=== PATIENT | female | born 1995 | race Asian ===

== ENCOUNTER → 2017-03-03 14:03 | Emergency (ER) | payer OTHER ==
[2017-03-03] MEDS: NS 0.9% 1000 ML* 2,000 ML IV ONE (14:54)
[2017-03-03 15:10] LABS: Hematocrit 38 % (35-47); Hemoglobin 12.7 g/dl (12.0-16.0); Mean Corpuscular HGB Conc 34 g/dl (31-36); Mean Corpuscular Hemoglobin 31 pg (27-31); Mean Corpuscular Volume 93 fL (80-97); Mean Platelet Volume 9 um3 (7.4-10.4); Red Blood Count 4.07 10^6/ul (4.0-5.4); Red Cell Distribution Width 13 % (10.5-15)
[2017-03-03 15:29] LABS: ALT 7 U/L (7-52); AST 11 U/L (13-39); Albumin 3.8 g/dL (3.2-5.2); Alkaline Phosphatase 32 U/L (34-104); Anion Gap 7 mmol/L (2-11); BUN/Creatinine Ratio 16.7 (8-20); Blood Urea Nitrogen 10 mg/dL (6-24); C Reactive Protein < 1.00 mg/L (< 5.00); CO2 Carbon Dioxide 20 mmol/L (22-32); Calcium 8.1 mg/dL (8.6-10.3); Chloride 110 mmol/L (101-111); EGFR African American 159.3 (>60); EGFR Non-African American 123.9 (>60); Globulin 2.7 g/dL (2-4); Glucose 115 mg/dL (70-100); Lipase 32 U/L (11.0-82.0); Potassium 3.8 mmol/L (3.5-5.0); Sodium 137 mmol/L (133-145); Total Protein 6.5 g/dL (6.4-8.9)
--- NOTE | 2017-03-03 16:57 | ED ---
Ramón Calvillo SooYoung, scribed for Jassi Florence MD on 03/03/17 at 1424 . Abdominal Pain/Female - HPI Summary HPI Summary: A 21 y/o F presents to ED BIBA with c/o suprapubic abd pain onset approx noon. Pain radiates to back. Associated sx: diaphoretic, chills, trembling, dyspnea, nausea, vomiting with blood, diarrhea, dizzy. Denies fever, urinary sx. Pt feels dehydrated. She states it's the first day of her period, but the pain is much more intense than normal. She isn't bleeding as heavily as she typically does. She states it's been on time. No abd surgeries. She feels better at bedside. She took Ibuprofen at approx 1300. - History of Current Complaint Chief Complaint: EDAbdPain Stated Complaint: ABD PAIN Time Seen by Provider: 03/03/17 14:22 Hx Obtained From: Patient Onset/Duration: Sudden Onset, Lasting Hours, Still Present Timing: Constant Severity Currently: Severe Pain Intensity: 10 Pain Scale Used: 0-10 Numeric Location: Diffuse, Suprapubic Associated Signs and Symptoms: Positive: Diaphoresis, Dizzy, Back Pain, Vaginal Bleeding, Nausea, Vomiting - with blood, Diarrhea, Other: - pos: dyspnea, trembling. Negative: Fever, Urinary Symptoms Allergies/Adverse Reactions: Allergies Allergy/AdvReac Type Severity Reaction Status Date / Time No Known Allergies Allergy Verified 03/03/17 14:39 PMH/Surg Hx/FS Hx/Imm Hx Previously Healthy: Yes Respiratory History: Denies: Hx Chronic Obstructive Pulmonary Disease (COPD) GI History: Denies: Hx Gastroesophageal Reflux Disease Opthamlomology History: Denies: Hx Legally Blind - Family History Known Family History: Negative: Cardiac Disease, Hypertension, Diabetes - Social History Occupation: Student Lives: Dormitory/Roommates Review of Systems Positive: Chills, Skin Diaphoresis, Other - trembling. Negative: Fever Positive: Abdominal Pain, Vomiting - with blood, Diarrhea, Nausea Positive: discharge - vaginal bleeding due to menstrual cycle. Negative: dysuria Neurological: Other - pos: dizziness All Other Systems Reviewed And Are Negative: Yes Physical Exam Triage Information Reviewed: Yes Vital Signs On Initial Exam: Initial Vitals BP 113/69 03/03/17 14:20 Vital Signs Reviewed: Yes Appearance: Positive: No Pain Distress, Ill-Appearing - mildly Skin: Positive: Warm, Skin Color Reflects Adequate Perfusion, Dry Head/Face: Positive: Normal Head/Face Inspection Eyes: Positive: EOMI, ERNESTINE ENT: Positive: Normal ENT inspection Neck: Positive: Supple, Nontender Respiratory/Lung Sounds: Positive: Clear to Auscultation, Breath Sounds Present Cardiovascular: Positive: RRR Abdomen Description: Positive: Soft, Other: - mild tenderness in suprapubic area Bowel Sounds: Positive: Hypoactive Musculoskeletal: Positive: Normal, Strength/ROM Intact Neurological: Positive: Normal, Sensory/Motor Intact, Alert, Oriented to Person Place, Time Psychiatric: Positive: Affect/Mood Appropriate Diagnostics - Vital Signs Vital Signs Temp Pulse Resp BP Pulse Ox 03/03/17 16:17 71 111/68 03/03/17 16:16 82 98/64 03/03/17 15:30 62 105/63 100 03/03/17 15:03 82 111/68 100 03/03/17 15:00 61 100 03/03/17 14:59 64 107/61 100 03/03/17 14:30 62 113/95 100 03/03/17 14:22 98.6 F 56 20 113/69 100 03/03/17 14:21 11 03/03/17 14:20 113/69 - Laboratory Lab Results: Lab Results 03/03/17 03/03/17 03/03/17 Range/Units 14:52 14:52 14:52 WBC 14.0 H (3.5-10.8) 10^3/ul RBC 4.07 (4.0-5.4) 10^6/ul Hgb 12.7 (12.0-16.0) g/dl Hct 38 (35-47) % MCV 93 (80-97) fL MCH 31 (27-31) pg MCHC 34 (31-36) g/dl RDW 13 (10.5-15) % Plt Count 154 (150-450) 10^3/ul MPV 9 (7.4-10.4) um3 Neut % (Auto) 88.4 H (38-83) % Lymph % (Auto) 6.8 L (25-47) % Mcnairy % (Auto) 3.7 (1-9) % Eos % (Auto) 0.5 (0-6) % Baso % (Auto) 0.6 (0-2) % Absolute Neuts (auto) 12.4 H (1.5-7.7) 10^3/ul Absolute Lymphs (auto) 1.0 (1.0-4.8) 10^3/ul Absolute Monos (auto) 0.5 (0-0.8) 10^3/ul Absolute Eos (auto) 0.1 (0-0.6) 10^3/ul Absolute Basos (auto) 0.1 (0-0.2) 10^3/ul Absolute Nucleated RBC 0.01 10^3/ul Nucleated RBC % 0.1 INR (Anticoag Therapy) 1.02 (0.89-1.11) APTT 27.7 (26.0-36.3) seconds Sodium 137 (133-145) mmol/L Potassium 3.8 (3.5-5.0) mmol/L Chloride 110 (101-111) mmol/L Carbon Dioxide 20 L (22-32) mmol/L Anion Gap 7 (2-11) mmol/L BUN 10 (6-24) mg/dL Creatinine 0.60 (0.51-0.95) mg/dL Est GFR ( Amer) 159.3 (>60) Est GFR (Non-Af Amer) 123.9 (>60) BUN/Creatinine Ratio 16.7 (8-20) Glucose 115 H (70-100) mg/dL Lactic Acid (0.5-2.0) mmol/L Calcium 8.1 L (8.6-10.3) mg/dL Total Bilirubin 0.90 (0.2-1.0) mg/dL AST 11 L (13-39) U/L ALT 7 (7-52) U/L Alkaline Phosphatase 32 L (34-104) U/L C-Reactive Protein < 1.00 (< 5.00) mg/L Total Protein 6.5 (6.4-8.9) g/dL Albumin 3.8 (3.2-5.2) g/dL Globulin 2.7 (2-4) g/dL Albumin/Globulin Ratio 1.4 (1-3) Lipase 32 (11.0-82.0) U/L Beta HCG, Quant < 0.60 mIU/mL 03/03/17 Range/Units 14:52 WBC (3.5-10.8) 10^3/ul RBC (4.0-5.4) 10^6/ul Hgb (12.0-16.0) g/dl Hct (35-47) % MCV (80-97) fL MCH (27-31) pg MCHC (31-36) g/dl RDW (10.5-15) % Plt Count (150-450) 10^3/ul MPV (7.4-10.4) um3 Neut % (Auto) (38-83) % Lymph % (Auto) (25-47) % Mcnairy % (Auto) (1-9) % Eos % (Auto) (0-6) % Baso % (Auto) (0-2) % Absolute Neuts (auto) (1.5-7.7) 10^3/ul Absolute Lymphs (auto) (1.0-4.8) 10^3/ul Absolute Monos (auto) (0-0.8) 10^3/ul Absolute Eos (auto) (0-0.6) 10^3/ul Absolute Basos (auto) (0-0.2) 10^3/ul Absolute Nucleated RBC 10^3/ul Nucleated RBC % INR (Anticoag Therapy) (0.89-1.11) APTT (26.0-36.3) seconds Sodium (133-145) mmol/L Potassium (3.5-5.0) mmol/L Chloride (101-111) mmol/L Carbon Dioxide (22-32) mmol/L Anion Gap (2-11) mmol/L BUN (6-24) mg/dL Creatinine (0.51-0.95) mg/dL Est GFR ( Amer) (>60) Est GFR (Non-Af Amer) (>60) BUN/Creatinine Ratio (8-20) Glucose (70-100) mg/dL Lactic Acid 1.7 (0.5-2.0) mmol/L Calcium (8.6-10.3) mg/dL Total Bilirubin (0.2-1.0) mg/dL AST (13-39) U/L ALT (7-52) U/L Alkaline Phosphatase (34-104) U/L C-Reactive Protein (< 5.00) mg/L Total Protein (6.4-8.9) g/dL Albumin (3.2-5.2) g/dL Globulin (2-4) g/dL Albumin/Globulin Ratio (1-3) Lipase (11.0-82.0) U/L Beta HCG, Quant mIU/mL Result Diagrams: 03/03/17 14:52 03/03/17 14:52 Lab Statement: Any lab studies that have been ordered have been reviewed, and results considered in the medical decision making process. Re-Evaluation - Re-Evaluation 1 Re-Evaluation Time: 16:43 Change: Improved Comment: Discussing results with pt and friend. Pt is completely pain free, PE upon reeval is nml. Abdominal Pain Fem Course/Dx - Course Course Of Treatment: A 21 y/o F presents to ED BIBA with c/o suprapubic abd pain onset approx noon. Pain radiates to back. Associated sx: diaphoretic, chills, trembling, dyspnea, n/v/d, dizzy. Denies fever, urinary sx. Pt feels dehydrated. She states it's the first day of her period, but the pain is much more intense than normal. She isn't bleeding as heavily as she typically does. She states it's been on time. No abd surgeries. She feels better at bedside. She took Ibuprofen at approx 1300. Medications reviewed. Bloodwork obtained. PAIN FREE IN ED. REAEXAM IS NORMAL; NONTENDER TO PALPATION. DISCUSSED RESULTS WITH PATIENT. SHE WILL F/U WITH PMD; RETURN IF WORSE. - Diagnoses Provider Diagnoses: Abdominal pain, suprapubic, Pelvic pain, Hematemesis, Dysmenorrhea Discharge - Discharge Plan Condition: Stable Disposition: HOME Patient Education Materials: Hematemesis (ED), Abdominal Pain (ED), Pelvic Pain in Women (ED), Dysmenorrhea (ED) Referrals: Pending Sale To [facility] - Alexandro WOLFE [Primary Care Provider] - Additional Instructions: FOLLOW UP WITH YOUR DOCTOR. RETURN TO THE EMERGENCY DEPARTMENT FOR ANY WORSENING OF YOUR CONDITION; PAIN, FEVER, YOU FEEL ILL, YOU FEEL LIKE PASSING OUT, BLOOD IN YOUR EMESIS OR STOOL OR QUESTIONS OR CONCERNS. The documentation as recorded by the Ramón burks SooYoung accurately reflects the service I personally performed and the decisions made by me, Jassi Florence MD.
[2017-03-03 17:14] VITALS: BP 107/57
== END | disposition home or self-care (01) ==
LOC: ED 14:03
DX: R10.9 Unspecified abdominal pain (principal); N94.6 Dysmenorrhea, unspecified; R42 Dizziness and giddiness; R10.2 Pelvic and perineal pain; M54.9 Dorsalgia, unspecified; R11.2 Nausea with vomiting, unspecified; N93.9 Abnormal uterine and vaginal bleeding, unspecified; R06.00 Dyspnea, unspecified; K92.0 Hematemesis
CPT/HCPCS: 36415; 80053; 83605; 83690; 84702; 85025; 85610; 85730; 86140; 96360; 99283